=== PATIENT | female | born 1990 | race Caucasian/White ===

== ENCOUNTER 2018-05-17 11:28 | Inpatient (IN) | payer MEDICAID ==
[~2018-05-17] VITALS: Ht 157.5 cm; Wt 67.1 kg
[~2018-05-17 11:28] MED LIST: FERR325E14 PO; IBUP-974 PO; PREN-385 PO
[2018-05-17] MEDS ORDERED: LOPERAMIDE 2 MG CAP PO SCH ×2 (11:40→12:00)
[2018-05-17] MEDS ORDERED: ONDANSETRON 4 MG/2 ML VIAL IVP PRN (11:50)
[2018-05-17 11:59] LABS: BASOPHILS # (AUTO) 0.1 K/uL (0.00-0.22); BASOPHILS % (AUTO) 0.5 % (0.0-2.0); EOSINOPHILS # (AUTO) 0.1 K/uL (0-0.4); EOSINOPHILS % (AUTO) 0.7 % (0.0-4.0); HEMATOCRIT 34.1 % (36-48); HEMOGLOBIN 11.2 g/dL (12.0-16.0); LYMPHOCYTES # (AUTO) 0.6 K/uL (2.5-16.5); LYMPHOCYTES % (AUTO) 5.9 % (20.5-51.1); MEAN CORPUSCULAR HEMOGLOBIN 26 pg (27-31); MEAN CORPUSCULAR HGB CONC 33 g/dL (33-37); MEAN CORPUSCULAR VOLUME 79.2 fL (80-94); MONOCYTES # (AUTO) 0.5 K/uL (0.8-1.0); MONOCYTES % (AUTO) 4.7 % (1.7-9.3); NEUTROPHILS # (AUTO) 8.5 K/uL (1.8-7.7); NEUTROPHILS % (AUTO) 88.2 % (42.2-75.2); PLATELET COUNT (AUTO) 269 K/uL (140-450); RED CELL DISTRIBUTION WIDTH 17.5 % (11.6-13.7); WHITE BLOOD COUNT (AUTO) 9.6 K/uL (4.8-10.8)
[2018-05-17 12:05] LABS: APPEARANCE,URINE CLEAR (CLEAR); BILIRUBIN,URINE NEGATIVE (NEGATIVE); BLOOD, URINE NEGATIVE (NEGATIVE); COLOR,URINE YELLOW (YELLOW); LEUKOCYTE ESTERASE ,URINE NEGATIVE (NEGATIVE); NITRITE, URINE NEGATIVE (NEGATIVE); UGLUCOSE NEGATIVE (NEGATIVE)
[2018-05-17] MEDS: LACTATED RINGERS 1,000 ML IV SCH ×2 (12:05→16:35)
[2018-05-17 12:32] LABS: ANION GAP 14.9 (8-16); CARBON DIOXIDE 20.1 mmol/L (21-32); CREATININE 0.5 mg/dL (0.6-1.3)
[2018-05-17] MEDS ORDERED: NALBUPHINE 10 MG/ML AMP ONE ×2 (12:37→22:07)
[2018-05-17 12:38] LABS: ALBUMIN 2.5 g/dL (3.4-5.0); TOTAL BILIRUBIN 0.1 mg/dL (0.0-1.0)
[2018-05-17] MEDS: NALBUPHINE 10 MG/ML AMP IVP PRN ×2 (13:45→22:13)
[2018-05-17 13:58] LABS: PROTHROMBIN TIME 9.4 secs (10.8-13.4)
[2018-05-17] MEDS ORDERED: TERBUTALINE 1 MG/ML VIAL SUBQ SCH (14:40)
[2018-05-17] MEDS ORDERED: TERBUTALINE 1 MG/ML VIAL SUBQ ONE (14:48)
[2018-05-17] MEDS ORDERED: NOVR SUBQ (16:39)
[2018-05-17] MEDS ORDERED: NOVN SUBQ (16:39)
[2018-05-17] MEDS: TERBUTALINE 2.5 MG TAB PO SCH (17:46)
[2018-05-17] MEDS ORDERED: TERBUTALINE 2.5 MG TAB ONE (17:49)
[2018-05-17] MEDS ORDERED: BLOOD GLUCOSE MONITORING 1 DEV DEV FS SCH (21:00)
[2018-05-18] MEDS ORDERED: TERBUTALINE 2.5 MG TAB ONE ×3 (00:03→12:22)
[2018-05-18] MEDS: LACTATED RINGERS 1,000 ML IV SCH (11:27)
[2018-05-18] MEDS: TERBUTALINE 2.5 MG TAB PO SCH (12:20)
== END 2018-05-18 13:05 | disposition home or self-care (01) | DRG 566 ==
LOC: MFCC 11:28
PROVIDERS: ADMIT Obstetrics & Gynecology; ATTEND Obstetrics & Gynecology
DX: O26.892 Other specified pregnancy related conditions, second trimester (principal); R10.9 Unspecified abdominal pain; R19.7 Diarrhea, unspecified; Z3A.25 25 weeks gestation of pregnancy
CPT/HCPCS: 36415; 51702; 76805; 80053; 81003; 82948; 85025; 85379; 85384; 85610; 85730; 96360; 96374; 96375; J2300; J3105; J7120; Q0092

== ENCOUNTER 2018-08-16 00:25 | Inpatient (IN) | payer MEDICAID ==
[~2018-08-16] VITALS: Ht 157.5 cm; Wt 71.7 kg
[~2018-08-16 00:25] MED LIST changes: -IBUP-974 PO; +NOVN SUBQ; +NOVR SUBQ
--- NOTE | 2018-08-17 07:26 | NUR ---
PATIENT HAS BEEN SCREENED AND CATEGORIZED LOW NUTRITION RISK. PATIENT WILL BE SEEN WITHIN 7 DAYS OF ADMISSION. 08/22/18 ABELARDO NGUYỄN MS, RDN
[2018-08-17] MEDS ORDERED: AMPICILLIN 2,000 MG in NACL 0.9% 100 ML IV ONE (07:45)
[2018-08-17] MEDS ORDERED: LACTATED RINGERS 1,000 ML IV SCH (07:50)
[2018-08-17 08:00] VITALS: BP 117/83
[2018-08-17 08:38] LABS: BASOPHILS % (AUTO) 0.5 % (0.0-2.0); EOSINOPHILS # (AUTO) 0.3 K/uL (0-0.4); HEMATOCRIT 37.6 % (36-48); HEMOGLOBIN 12.2 g/dL (12.0-16.0); LYMPHOCYTES # (AUTO) 1.5 K/uL (2.5-16.5); LYMPHOCYTES % (AUTO) 28.3 % (20.5-51.1); MEAN CORPUSCULAR HEMOGLOBIN 25 pg (27-31); MEAN CORPUSCULAR HGB CONC 32 g/dL (33-37); MONOCYTES # (AUTO) 0.2 K/uL (0.8-1.0); MONOCYTES % (AUTO) 4.5 % (1.7-9.3); NEUTROPHILS # (AUTO) 3.3 K/uL (1.8-7.7); NEUTROPHILS % (AUTO) 60.7 % (42.2-75.2); PLATELET COUNT (AUTO) 289 K/uL (140-450); RED BLOOD CELL COUNT(AUTO) 4.82 MIL/uL (4.20-5.40); RED CELL DISTRIBUTION WIDTH 14.5 % (11.6-13.7); WHITE BLOOD COUNT (AUTO) 5.5 K/uL (4.8-10.8)
[2018-08-17 09:18] LABS: APPEARANCE,URINE CLEAR (CLEAR); BILIRUBIN,URINE NEGATIVE (NEGATIVE); BLOOD, URINE NEGATIVE (NEGATIVE); COLOR,URINE YELLOW (YELLOW); LEUKOCYTE ESTERASE ,URINE NEGATIVE (NEGATIVE); NITRITE, URINE NEGATIVE (NEGATIVE); UGLUCOSE NEGATIVE (NEGATIVE)
[2018-08-17 09:58] LABS: PROTHROMBIN TIME 8.7 secs (10.8-13.4)
[2018-08-17 10:01] LABS: ANION GAP 14.4 (8-16); CARBON DIOXIDE 22.2 mmol/L (21-32); CREATININE 0.4 mg/dL (0.6-1.3); POTASSIUM 3.6 mmol/L (3.5-5.1)
[2018-08-17 10:02] LABS: ALBUMIN 2.5 g/dL (3.4-5.0); TOTAL BILIRUBIN 0.2 mg/dL (0.0-1.0)
[2018-08-17] MEDS ORDERED: METOCLOPRAMIDE 10 MG/2 ML INJ VIAL ONE (10:50)
[2018-08-17] MEDS ORDERED: ONDANSETRON 4 MG/2 ML VIAL ONE (10:50)
[2018-08-17] MEDS ORDERED: BUPIVACAINE-MPF 0.25% 30 ML VIAL INJ ONE (10:50)
[2018-08-17] MEDS ORDERED: MORPHINE PRES FREE 2 MG/2 ML 2 mL UD SYRINGE ONE (10:58)
[2018-08-17] MEDS ORDERED: ceFAZolin 1,000 MG VIAL IVP ONE (11:00)
[2018-08-17] MEDS ORDERED: diphenhydrAMINE 50 MG/ML VIAL IVP PRN (11:15)
[2018-08-17] MEDS ORDERED: NALOXONE 0.4 MG/ML VIAL IVP PRN ×2 (11:15)
[2018-08-17] MEDS ORDERED: KETOROLAC 30 MG/ML VIAL IVP PRN (11:15)
[2018-08-17] MEDS ORDERED: ONDANSETRON 4 MG/2 ML VIAL IVP PRN (11:15)
[2018-08-17] MEDS ORDERED: OXYTOCIN 20 UNITS in LACTATED RINGERS 1,000 ML IV SCH (11:15)
[2018-08-17] MEDS ORDERED: MEASLES, MUMPS, AND RUBELLA 1 VIAL SQVAC PRN (14:30)
[2018-08-17] MEDS: KETOROLAC 30 MG/ML VIAL IVP PRN (18:05)
[2018-08-17] MEDS ORDERED: OXYTOCIN 20 UNITS/LR PREMIX 1,000 ML IV ONE (20:33)
[2018-08-17] MEDS: OXYTOCIN 20 UNITS in LACTATED RINGERS 1,000 ML IV SCH (20:45)
[2018-08-18] MEDS: OXYTOCIN 20 UNITS in LACTATED RINGERS 1,000 ML IV SCH (04:51)
[2018-08-18] MEDS ORDERED: OXYTOCIN 20 UNITS/LR PREMIX 1,000 ML IV ONE (04:56)
[2018-08-18] MEDS ORDERED: HYDROmorphone 1 MG/ML AMP IVP PRN (05:00)
[2018-08-18] MEDS: KETOROLAC 30 MG/ML VIAL IVP PRN ×4 (05:49→23:30)
[2018-08-18 08:23] LABS: BASOPHILS % (AUTO) 0.2 % (0.0-2.0); EOSINOPHILS # (AUTO) 0.4 K/uL (0-0.4); EOSINOPHILS % (AUTO) 4.8 % (0.0-4.0); HEMATOCRIT 32.5 % (36-48); HEMOGLOBIN 10.5 g/dL (12.0-16.0); LYMPHOCYTES # (AUTO) 1.5 K/uL (2.5-16.5); MEAN CORPUSCULAR HEMOGLOBIN 25 pg (27-31); MEAN CORPUSCULAR HGB CONC 32 g/dL (33-37); MEAN CORPUSCULAR VOLUME 77.7 fL (80-94); MONOCYTES # (AUTO) 0.4 K/uL (0.8-1.0); MONOCYTES % (AUTO) 5.1 % (1.7-9.3); NEUTROPHILS # (AUTO) 5.5 K/uL (1.8-7.7); NEUTROPHILS % (AUTO) 70.9 % (42.2-75.2); PLATELET COUNT (AUTO) 238 K/uL (140-450); RED BLOOD CELL COUNT(AUTO) 4.19 MIL/uL (4.20-5.40); RED CELL DISTRIBUTION WIDTH 14.6 % (11.6-13.7); WHITE BLOOD COUNT (AUTO) 7.8 K/uL (4.8-10.8)
[2018-08-18 08:43] LABS: ANION GAP 11.3 (8-16); CARBON DIOXIDE 23.5 mmol/L (21-32); CREATININE 0.4 mg/dL (0.6-1.3); POTASSIUM 3.8 mmol/L (3.5-5.1)
[2018-08-18] MEDS ORDERED: ACETAMINOPHEN 325 MG TAB PO PRN (22:00)
[2018-08-19] MEDS: KETOROLAC 30 MG/ML VIAL IVP PRN (07:54)
[2018-08-19] MEDS ORDERED: SODIUM PHOSPHATE 118 ML ENEM RC PRN (08:00)
[2018-08-19] MEDS: DOCUSATE SODIUM 100 MG GELCAP PO SCH (08:17)
[2018-08-19] MEDS: SIMETHICONE 80 MG TAB.CHEW PO SCH ×3 (08:18→18:55)
[2018-08-19] MEDS: BISACODYL 5 MG TABEC PO PRN (08:18)
[2018-08-19] MEDS ORDERED: INSULIN REGULAR, HUMAN 100 UNIT/ML VIAL SUBQ SCH ×2 (10:40→16:30)
[2018-08-19] MEDS ORDERED: COMMUNICATION ORDER MC ONE (10:50)
[2018-08-19] MEDS ORDERED: INSULIN NPH HUMAN ISOPHANE 100 UNIT/ML VIAL SUBQ SCH ×3 (10:55→21:30)
[2018-08-19] MEDS: IBUPROFEN 600 MG TAB PO PRN ×2 (13:30→18:55)
[2018-08-19] MEDS ORDERED: INSULIN NPH HUM/REG INSULIN HM 100 UNIT/ML 10 ML VIAL SUBQ ONE (21:00)
[2018-08-19] MEDS ORDERED: INFLUENZA VIRUS VACCINE QUAD 0.5 ML SYR IMVAC PRN (22:00)
[2018-08-20] MEDS: IBUPROFEN 600 MG TAB PO PRN ×3 (02:36→19:59)
[2018-08-20] MEDS ORDERED: INSULIN NPH HUMAN ISOPHANE 100 UNIT/ML VIAL SUBQ SCH (07:30)
[2018-08-20] MEDS ORDERED: INSULIN REGULAR, HUMAN 100 UNIT/ML VIAL SUBQ SCH (11:30)
[2018-08-20] MEDS ORDERED: INSULIN LANTUS 100 UNITS/ML 10 ML VIAL SUBQ SCH ×2 (11:30→21:00)
[2018-08-20] MEDS: INSULIN REGULAR, HUMAN 100 UNIT/ML VIAL SUBQ SCH (17:54)
[2018-08-21] MEDS: IBUPROFEN 600 MG TAB PO PRN (06:19)
[2018-08-21] MEDS ORDERED: INSULIN LANTUS 100 UNITS/ML 10 ML VIAL SUBQ SCH (06:30)
[2018-08-21] MEDS: INSULIN REGULAR, HUMAN 100 UNIT/ML VIAL SUBQ SCH (08:22)
[2018-08-21] MEDS: BISACODYL 5 MG TABEC PO PRN (09:41)
[2018-08-21] MEDS: DOCUSATE SODIUM 100 MG GELCAP PO SCH (09:42)
[2018-08-21] MEDS: SIMETHICONE 80 MG TAB.CHEW PO SCH (09:44)
[2018-08-21] MEDS ORDERED: IBUP-1842 PO (11:36)
[2018-08-21] MEDS ORDERED: INSULIN REGULAR, HUMAN 100 UNIT/ML VIAL SUBQ ONE (16:30)
== END 2018-08-21 14:07 | disposition home or self-care (01) | DRG 540 ==
LOC: MLD 08-17 07:11 → MFCC 08-17 11:56
PROVIDERS: ADMIT Obstetrics & Gynecology; ATTEND Obstetrics & Gynecology
PROC: 0UB70ZZ Excision of Bilateral Fallopian Tubes, Open Approach (ICD-10-PCS; 2018-08-17)
PROC: 10D00Z1 Extraction of Products of Conception, Low, Open Approach (ICD-10-PCS; principal; 2018-08-17 10:30)
PROC: 3E02340 Introduction of Influenza Vaccine into Muscle, Percutaneous Approach (ICD-10-PCS; 2018-08-19)
PROC: 3E0234Z Introduction of Serum, Toxoid and Vaccine into Muscle, Percutaneous Approach (ICD-10-PCS; 2018-08-19)
PROC: 3E0134Z Introduction of Serum, Toxoid and Vaccine into Subcutaneous Tissue, Percutaneous Approach (ICD-10-PCS; 2018-08-19)
DX: O34.211 Maternal care for low transverse scar from previous cesarean delivery (principal); O24.12 Pre-existing type 2 diabetes mellitus, in childbirth; E11.9 Type 2 diabetes mellitus without complications; O36.60X0 Maternal care for excessive fetal growth, unspecified trimester, not applicable or unspecified; Z30.2 Encounter for sterilization; Z37.0 Single live birth; Z79.4 Long term (current) use of insulin; Z3A.38 38 weeks gestation of pregnancy; Z23 Encounter for immunization; Z83.3 Family history of diabetes mellitus; Z82.49 Family history of ischemic heart disease and other diseases of the circulatory system
CPT/HCPCS: 36415; 80048; 80053; 81003; 82947; 82948; 85025; 85610; 85730; 86592; 86886; 86900; 86901; 87086; 90658; 90707; 90715; J0690; J1815; J1885; J2270; J2405; J2590; J2765; J3490; J7060; J7120